=== PATIENT | male | born 1950 | race Caucasian/White ===

== ENCOUNTER 2020-01-27 09:46 | Outpatient (REF) | payer MEDICARE, SELFPAY ==
--- NOTE | 2020-01-27 09:57 | XR_ITS ---
EXAMINATION: XR CHEST CLINICAL INFORMATION: Chest pain COMPARISON: None TECHNIQUE: 2 views of the chest were obtained. FINDINGS: Both lungs are fairly well-expanded and clear of acute process. The heart size and pulmonary vascularity are normal. There is moderate spondylosis dorsal spine. No lytic process seen XR/XR chest 2V IMPRESSION: Unremarkable chest exam
== END 2020-01-27 09:47 | disposition home or self-care (01) ==
LOC: HO.XRAY 09:46
PROVIDERS: PCP Internal Medicine; Visit Provider Internal Medicine Cardiovascular Disease
DX: R07.89 Other chest pain (principal)
CPT/HCPCS: 71046

== ENCOUNTER 2021-05-07 09:55 | Outpatient (REF) | payer MEDICARE, SELFPAY ==
[2021-05-07 11:56] LABS: Anion Gap 12 (12-20); Blood Urea Nitrogen 16 mg/dL (9-16); Calcium 9.3 mg/dL (8.4-10.2); Carbon Dioxide 28 mmol/L (22-29); Chloride 105 mmol/L (96-108); Estimated Glomerular Filt Rate > 60; Glucose Random 102 mg/dL (60-115); Potassium 4.6 mmol/L (3.3-5.1); Sodium 140 mmol/L (135-145)
== END 2021-05-07 09:56 | disposition home or self-care (01) ==
LOC: HO.HMGCLDS 09:55
PROVIDERS: PCP Internal Medicine; Visit Provider Internal Medicine
DX: I25.10 Atherosclerotic heart disease of native coronary artery without angina pectoris (principal); R04.2 Hemoptysis
CPT/HCPCS: 36415; 80048

== ENCOUNTER 2022-06-27 10:10 | Outpatient (REF) | payer MEDICARE, SELFPAY ==
[2022-06-27 11:45] LABS: Amphetamine Screen Urine Not Detected (Not Detect); Barbiturates, Urine Not Detected (Not Detect); Benzodiazepines Screen Urine Not Detected (Not Detect); Cannabinoid Screen Urine Not Detected (Not Detect); Cocaine Screen Urine Not Detected (Not Detect); Fentanyl, urine Not Detected (Not Detect); Opiate Screen Urine Not Detected (Not Detect); Phencyclidine Screen Urine Not Detected (Not Detect)
== END 2022-06-27 10:11 | disposition home or self-care (01) ==
LOC: HO.HMGCLDS 10:10
PROVIDERS: PCP Internal Medicine; Visit Provider Internal Medicine
DX: I48.20 Chronic atrial fibrillation, unspecified (principal); Z79.899 Other long term (current) drug therapy
CPT/HCPCS: 80307

== ENCOUNTER 2023-11-19 15:05 | Outpatient (REF) | payer MEDICARE, SELFPAY ==
[2023-11-19 16:46] LABS: Digoxin 0.4 ng/mL (0.8-2.0)
== END 2023-11-19 15:06 | disposition home or self-care (01) ==
LOC: HO.HMGCLDS 15:05
PROVIDERS: PCP Internal Medicine; Visit Provider Nurse Practitioner
DX: I48.20 Chronic atrial fibrillation, unspecified (principal)
CPT/HCPCS: 36415; 80162

== ENCOUNTER 2024-04-18 11:19 | Outpatient (REF) | payer MEDICARE, SELFPAY ==
--- OUTSIDE RECORDS SUMMARY | 2024-04-18 13:11 | XMS_ITS | Continuity of Care Document ---
Author Organization [facility]. If a dditional information is needed, contact Health Information Management at [phone] Address [address] [place] [address] Phone Care Team Providers Care Communications Professional Name Role Phone Unavailable Unavailable Unavailable Unavailable Unavailable Unavailable Unavailable Unavailable Unavailable Unavailable Unavailable Unavailable Problems Pneumonia Onset:22-Apr-2021 Kayla Maki DO Allergies and Adverse Reactions Codeine(Allergy) Onset: 22-Apr-2021 Reaction:RASH Social History Smoking Status Ex-smoker Recorded: 22-Apr-2021
--- OUTSIDE RECORDS SUMMARY | 2024-04-18 13:11 | XMS_ITS | Clinical Summary ---
Author Organization [facility] ity Address [address] [place] [address] Care Team Providers Care Investigations Manager Name Role Phone Steven Gonzalez MD Primary Care Provider [phone] Immunizations Name Administration Dates Next Due Pfizer SARS-CoV-2 COVID-19, mRNA, LNP-S, preservative free 11/29/2020,05/15/2020,04/24/2020 Surgical History Surgery Date Site/Laterality Comments OTHER SURGICAL HISTORY 11/14/2018 PROCEDURE: CA LAPS ABD PRTM&OMENTUM DX W/WO SPEC BR/WA SPX; COMMENT: w/ or w/o collection of specimen(s) by brushing or washing (separate procedure) OTHER SURGICAL HISTORY 11/14/2018 PROCEDURE: CA ENTERECTOMY RESCJ SMALL INTESTINE W/ENTEROSTOMY COLONOSCOPY 08/02/2018 PROCEDURE: HISTORICAL COLONOSCOPY OTHER SURGICAL HISTORY PROCEDURE: DISKECTOMY LUMBAR SINGLE SP INCISIONAL HERNIA REPAIR PROCEDURE: CA IMPLANT MESH OPN HERNIA RPR/DEBRIDEMENT CLOSURE OTHER SURGICAL HISTORY PROCEDURE: CA PRQ TRLUML CORONARY STENT W/ANGIO ONE ART/BRNCH HERNIA REPAIR Bilateral PROCEDURE: HISTORICAL HERNIA REPAIR/ING CHOLECYSTECTOMY PROCEDURE: HISTORICAL CHOLECYSTECTOMY Medical History Medical History Date Comments BPH (benign prostatic hyperplasia) DX:BPH (benign prostatic hyperplasia) Chronic GERD DX:Chronic GERD History of DVT (deep vein thrombosis) DX:History of DVT (deep vein thrombosis) Obesity (BMI 30-39.9) DX:Obesity (BMI 30-39.9) CIERRA (obstructive sleep apnea) DX :CIERRA (obstructive sleep apnea) Pulmonary embolism (CMS/HCC) DX: Pulmonary embolism (HCC) Deep vein thrombosis (DVT) o f calf muscle vein of right lower extremity, unspecified chronicity (CMS/HCC) DX:Deep vein thrombos is (DVT) of calf muscle vein of right lower extremity, unspecified chronicity (HCC) Dizziness DX:Dizziness Giddiness DX:Giddiness Social History Tobacco Use Types Packs/Day Years Used Date Smoking Tobacco: Former Smokeless Tobacco: Never Alcohol Use Standard Drinks/Week Comments Not Currently 0 (1 standard drink = 0.6 oz pur e alcohol) Sex and Gender Information Value Date Recorded Sex Assigned at Not on file Legal Sex Male 11:47 AM EST Gender Identity Not on file Sexual Orientation Not on file Obstetrics History Last Filed Vital Signs Vital Sign Reading Time Taken Comments Blood Pressure 100/60 12/04/2023 1:06 PM EDT Pulse 64 01/16/2023 2:46 PM EST Temperature - - Respiratory Rate - - Oxygen Saturation - - Inhaled Oxygen Concentration - - Weight 93.9 kg (207 lb) 12/04/2023 1:06 PM EDT Height 188 cm (6' 2 ) 12/04/2023 1:06 PM EDT Body Mass Index 26.58 12/04/2023 1:06 PM EDT Plan of Treatment Health Maintenance Due Date Last Done Comments DTaP,Tdap,and Td Vaccines (1 - Tdap) 06/11/1967 Zoster Vaccines (1 of 2) 1998 Abdominal Aortic Aneurysm (AAA) Screen 01/10/2022 Cholesterol Screening (Lipid Panel) 01/10/2022 Colorectal Cancer Screening: Colonoscopy 01/10/2022 Depression Screening 01/10/2022 Falls Risk Assessment 01/10/2022 Hepatitis C Screening 01/10/2022 Social Influencers of Health Screening 01/10/2022 Hypertension/CHF/CAD Annual BMP Blood Test 01/22/2022 RSV Immunization Patients 60+ Years Old (1 - 1-dose 75+ series) 06/11/2023 COVID-19 Vaccine ( season) 2023 11/29/2020, 05/15/2020, 04/24/2020 Influenza Vaccine (#1) 2023 2, 11/11/2020, 11/05/2019, Additional history exists Pneumococcal Vaccine: 50+ Years Completed 11/11/2020, 12/01/2019, 11/18/2018, Additional history exists HIB Vaccines Aged Out No longer eligi ble based on patient's age to complete this topic HPV Vaccines Aged Out No longer eligi ble based on patient's age to complete this topic Hepatitis A Vaccines Aged Out No long er eligible based on patient's age to complete this topic Hepatitis B Vaccines Aged Out No long er eligible based on patient's age to complete this topic IPV Vaccines Aged Out No longer eligi ble based on patient's age to complete this topic MMR Vaccines Aged Out No longer eligi ble based on patient's age to complete this topic Meningococcal ACWY Vaccine Aged Out N o longer eligible based on patient's age to complete this topic Meningococcal B Vacine Aged Out No lo nger eligible based on patient's age to complete this topic RSV Immunization Patients Under 20 months Aged Out No longer eligible based on patient's age to complete this topic Varicella Vaccines Aged Out No longer eligible based on patient's age to complete this topic Care Teams Investigations Manager Relationship Specialty Start Date End Date Steven Gonzalez MD [address] [place] [address] PCP - General Internal Medicine 03/14/21
[2024-04-18 13:24] LABS: MANUAL DIFF FLAG NO
[2024-04-18 13:29] LABS: Basophils Absolute Auto 0.1 X10*3/uL (0.0-0.2); Basophils Percent Auto 0.7 % (0-2); Eosinophils Absolute Auto 0.6 X10*3/uL (0.0-0.4); Eosinophils Percent Auto 7.4 % (0-4); Hematocrit 40.9 % (42.0-52.0); Hemoglobin 13.6 g/dl (14.0-18.0); Imm Gran Abs Auto 0.02 X10*3/uL (0.00-0.03); Imm Gran Pct Auto 0.3 % (0.0-0.4); Lymphocytes Absolute Auto 1.8 X10*3/uL (1.2-4.9); Lymphocytes Percent Auto 24.2 % (20-40); Mean Corpuscular HGB Conc 33.3 g/dl (31.0-36.0); Mean Corpuscular Hemoglobin 29.5 pg (27.0-33.0); Mean Corpuscular Volume 88.7 fL (80.0-98.0); Monocytes Absolute Auto 0.7 X10*3/uL (0.1-1.2); Neutrophils Absolute Auto 4.4 x10*3/uL (2.0-8.3); Neutrophils Percent Auto 58.4 % (45-73); Platelet Count 151 X10*3/uL (160-400); Red Blood Count 4.61 X10*6/uL (4.60-5.80); Red Cell Distribution Width 14.8 % (11.0-16.0); White Blood Count 7.6 X10*3/uL (4.8-10.8)
[2024-04-18 13:45] LABS: Estimated Average Glucose 120 mg/dL; Hemoglobin A1c % 5.8 % (<6.0)
[2024-04-18 13:52] LABS: Alanine Aminotransferase 11 U/L (0-40); Albumin Level 3.5 g/dL (3.5-5.0); Alkaline Phosphatase 64 U/L (39-117); Anion Gap 9 (12-20); Aspartate Amino Transferase 27 U/L (5-37); Bilirubin Total 1.4 mg/dL (0.0-1.0); Blood Urea Nitrogen 13 mg/dL (9-16); Calcium 8.6 mg/dL (8.4-10.2); Carbon Dioxide 27 mmol/L (22-29); Chloride 107 mmol/L (96-108); Estimated Glomerular Filt Rate > 60; Glucose Random 105 mg/dL (60-115); Potassium 4.3 mmol/L (3.3-5.1); Sodium 139 mmol/L (135-145); Total Protein 6.1 g/dL (6.5-8.0)
== END 2024-04-18 11:20 | disposition home or self-care (01) ==
LOC: HO.HMGCLDS 11:19
PROVIDERS: PCP Internal Medicine; Visit Provider Internal Medicine
DX: I50.9 Heart failure, unspecified (principal); E78.00 Pure hypercholesterolemia, unspecified; R73.01 Impaired fasting glucose
CPT/HCPCS: 36415; 80053; 83036; 84439; 84443; 85025

== ENCOUNTER 2024-09-12 10:37 | Outpatient (REF) | payer MEDICARE, SELFPAY ==
--- OUTSIDE RECORDS SUMMARY | 2024-09-12 10:45 | XMS_ITS | Continuity of Care Document ---
Author Organization [facility]. If a dditional information is needed, contact Health Information Management at [phone] [address] [place] [address] Phone Care Team Providers Care Research Assistant Name Role Phone Unavailable Unavailable Unavailable Unavailable Unavailable Unavailable Unavailable Unavailable Unavailable Unavailable Unavailable Unavailable Problems Pneumonia Onset:22-Apr-2021 Kayla Maki DO Allergies and Adverse Reactions Codeine(Allergy) Onset: 22-Apr-2021 Reaction:RASH Social History Smoking Status Ex-smoker Recorded: 22-Apr-2021
--- OUTSIDE RECORDS SUMMARY | 2024-09-12 10:46 | XMS_ITS | Clinical Summary ---
Author Organization [facility] Address [address] [place] [address] Phone Care Team Providers Care Meteorological Engineer Name Role Phone Steven Gonzalez MD Primary Care Provider [phone] Allergies No known active allergies Medications Xarelto 20 mg tablet Take 1 tablet (20 mg total) by mouth 1 (one) time each day with dinner. Active aspirin 81 mg EC tablet Take 1 tablet (81 mg total) by mouth daily. Active nitroglycerin (NITROSTAT) 0.[address] 1 tablet (0.4 mg total) under the tongue every 5 (five) minutes if needed for chest pain. 100 tablet 08/22/19 25 Active midodrine (PROAMATINE) 5 mg tablet TAKE 1 TABLET BY MOUTH TWICE A DAY. TAKE IN ADDITION TO THE 2.5 MG TABLETS FOR A TOTAL DOSE OF 7.5 MG TWICE A DAY. 180 tablet 08/22/19 25 Active midodrine (PROAMATINE) 2.5 mg tablet Take 1 tablet (2.5 mg total) by mouth 2 (two) times a day. 180 tablet 08/22/19 25 Active metoprolol succinate (TOPROL-XL) 25 mg 24 hr tablet Take 1 tablet (25 mg total) by mouth 1 (one) time each day. 90 tablet 08/22/19 25 Active atorvastatin (LIPITOR) 80 mg tablet Take 1 tablet (80 mg total) by mouth 1 (one) time each day. 90 tablet 08/22/19 25 Active digoxin (LANOXIN) 250 mcg (0.25 mg) tablet 1 tablet 3 times a week on Sunday, Sunday and Sunday 36 tablet 1 08/22/19 Active midodrine (PROAMATINE) 2.5 mg tablet TAKE 1 TABLET BY MOUTH 2 TIMES DAILY. TAKE IN ADDITION TO 5 MG TABLETS FOR TOTAL 7.5 MG TWICE A DAY 180 tablet 1 05/09/19 25 025 Discontinued(Re order) metoprolol succinate (TOPROL-XL) 25 mg 24 hr tablet TAKE 1 TABLET BY MOUTH EVERY DAY 90 tablet 2 06/24/19 025 Discontinued(Re order) midodrine (PROAMATINE) 5 mg tablet TAKE 1 TABLET BY MOUTH TWICE A DAY. TAKE IN ADDITION TO THE 2.5 MG TABLETS FOR A TOTAL DOSE OF 7.5 MG TWICE A DAY. 180 tablet 1 08/02/19 025 Discontinued(Re order) nitroglycerin (NITROSTAT) 0.[address] 1 tablet (0.4 mg total) under the tongue every 5 (five) minutes if needed for chest pain. 025 Discontinued(Re order) atorvastatin (LIPITOR) 80 mg tablet Take 1 tablet (80 mg total) by mouth 1 (one) time each day. 025 Discontinued(Re order) digoxin (LANOXIN) 250 mcg (0.25 mg) tablet Take 1 tablet (250 mcg total) by mouth. 1 tablet 3 times a week on Sunday, Sunday and Sunday 025 Discontinued(Re order) digoxin (LANOXIN) 250 mcg (0.25 mg) tablet Take 1 tablet (250 mcg total) by mouth 1 (one) time each day. 1 tablet 3 times a week on Sunday, Sunday and Sunday 90 tablet 1 08/22/19 025 Discontinued Hospital, Clinic, or Other Facility Administered Medication Ordered Dose Route Frequency Start Date End Date Status TC-99M tetrofosmin P radio-isotope injection 10.2 millicurie 10.2 millicurie IV Once in imaging 09/04/2024 09/04/2024 Ende d regadenoson (LEXISCAN) injection 0.4 mg 0.4 mg IV Once in imaging 09/04/2024 09/04/2024 End ed TC-99M tetrofosmin P radio-isotope injection 32 millicurie 32 millicurie IV Once in imaging 09/04/2024 09/04/2024 Ended Active Problems Problem Noted Date Diagnosed Date Atrial fibrillation, chronic ([facility] V24, [facility] V28) 08/22/2024 Assessment & Plan (08/22/2024 8:33 AM EDT): Patient continues on anticoagulation with Xarelto. He has history of paroxysmal atrial fibrillation. We will update a Holter monitor to assess for any rate control issues. HLD (hyperlipidemia) 05/04/2021 Assessment & Plan (08/22/2024 8:33 AM EDT): Goal LDL cholesterol is less than 70. He continues on atorvastatin 80 mg once a day. Will update labs today. 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 He continues on Xarelto for anticoagulation. His creatinine clearance is 115 mL/min. He is appropriately dosed on Xarelto 20 mg once a day. 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 He continues on Xarelto for anticoagulation. His creatinine clearance is 98 mL/min. He is appropriately dosed on Xarelto 20 mg once a day. Hypertension 01/21/2018 Assessment & Plan (08/22/2024 8:33 AM EDT): Patient is blood pressure today is 110/72. He does have history of static hypotension and he is complaining of some lightheadedness with activities. Has been taking midodrine only 5 mg twice a day. At 1 point we did increase this to 7.5 mg twice a day however the patient was unsure of what he was was to be taking. We discussed this at length and patient is now aware that he should now take 7.5 mg twice a day first dose in the morning and the second dose early afternoon. Coronary artery disease 01/08/2018 Overview (08/22/2024): Assessment & Plan (08/22/2024 8:33 AM EDT): Patient is history of coronary artery disease with history of LAD stenting in 2007 and RCA stenting in 2009. He denies any exertional anginal symptoms. However he is complaining of palpitations and chest discomfort with activity. He reports that he does sometimes take sublingual nitroglycerin however has nitroglycerin is . Generally the discomfort resolves quickly with rest. I have renewed his sublingual nitroglycerin and I reviewed indications for appropriate use. I will also arrange for cardiac testing including a registered nurse cardiac telemetry, echocardiogram and nuclear stress test patient will also have labs done today. Patient encouraged to follow-up with primary care provider to discuss his depression issues or at least search for a new primary since he states that his current primary will be retiring. I will of course notify him of results when available and we will plan to see him back in the coming weeks to reevaluate his symptoms. Resolved Problems Problem Noted Date Diagnosed Date Resolved Date Coronary artery disease invo lving nenana coronary artery of nenana heart 08/22/2024 08/23/19 25 Longstanding persistent atri al fibrillation (CMS/HCC V24, CMS/HCC V28) 07/11/2022 08/22/2024 Atrial fibrillation (CMS/HCC V24, CMS/HCC V28) 05/05/2021 08/22/2024 Overview (08/22/2024): Last Assessment & Plan: Patient continues on digoxin and metoprolol for rate control of his atrial fibrillation. He continues on Xarelto for anticoagulation. I will update a digoxin level. Encounters Date Type Department Care Team Description 09/04/2024 8:00 AM EDT Ancillary Procedure [facility] Cardiology [facility] [address] [place] [phone] Atrial fibrillation, chronic (CMS/HCC V24, CMS/HCC V28); Coronary artery disease involving nenana coronary artery of nenana heart, unspecified whether angina present 09/01/2024 8:30 AM EDT Ancillary Procedure [facility] Cardiology [facility] [address] [place] [phone] Atrial fibrillation, chronic (CMS/HCC V24, CMS/HCC V28); Coronary artery disease involving nenana coronary artery of nenana heart, unspecified whether angina present 08/26/2024 Telephone [facility] [address] [place] [address] Herminia Miller NP 08/22/2024 Telephone [facility] [address] [place] [address] Herminia Miller NP Results 08/21/2024 8:10 AM EDT Office Visit [facility] [address] [facility] [address] [place] [address] Herminia Miller NP Atrial fibrillation, chronic (CMS/HCC V24, CMS/HCC V28) (Primary Dx); Coronary artery disease involving nenana coronary artery of nenana heart without angina pectoris; Mixed hyperlipidemia; Primary hypertension; Pulmonary embolism, unspecified chronicity, unspecified pulmonary embolism type, unspecified whether acute cor pulmonale present (CMS/HCC V24, CMS/HCC V28); Coronary artery disease involving nenana coronary artery of nenana heart, unspecified whether angina present 08/04/2024 Telephone [facility] [address] [place] [address] Herminia Miller NP Appointment 08/01/2024 Telephone [facility] [address] [place] [address] Herminia Miller NP Medication Problem from Last 3 Months Immunizations Name Administration Dates Next Due [facility] SARS-CoV-2 COVID-19, mRNA, LNP-S, preservative free 11/29/2020,05/15/2020,04/24/2020 Surgical History Surgery Date Site/Laterality Comments OTHER SURGICAL HISTORY 11/14/2018 PROCEDURE: VT LAPS ABD PRTM&OMENTUM DX W/WO SPEC BR/WA SPX; COMMENT: w/ or w/o collection of specimen(s) by brushing or washing (separate procedure) OTHER SURGICAL HISTORY 11/14/2018 PROCEDURE: VT ENTERECTOMY RESCJ SMALL INTESTINE W/ENTEROSTOMY COLONOSCOPY 08/02/2018 PROCEDURE: HISTORICAL COLONOSCOPY OTHER SURGICAL HISTORY PROCEDURE: DISKECTOMY LUMBAR SINGLE SP INCISIONAL HERNIA REPAIR PROCEDURE: VT IMPLANT MESH OPN HERNIA RPR/DEBRIDEMENT CLOSURE OTHER SURGICAL HISTORY PROCEDURE: VT PRQ TRLUML CORONARY STENT W/ANGIO ONE ART/BRNCH [...] DX :CIERRA (obstructive sleep apnea) Pulmonary embolism (CMS/HCC V24, CMS/HCC V28) DX:Pulmonary embolism (HCC) Deep vein thrombosis (DVT) o f calf muscle vein of right lower extremity, unspecified chronicity (CMS/HCC V24, CMS/HCC V28) DX:Deep vein thrombosis (DVT ) of calf muscle vein of right lower extremity, unspecified chronicity (HCC) Dizziness DX:Dizziness Giddiness DX:Giddiness Social History Tobacco Use Types Packs/Day Years Used Date Smoking Tobacco: Former Cigarettes Smokeless Tobacco: Never Tobacco Cessation:Counseling Given: Not Answered Alcohol Use Standard Drinks/Week Comments Not Currently 0 (1 standard drink = 0.6 oz pur e alcohol) Sex and Gender Information Value Date Recorded Sex Assigned at Not on file Legal Sex Male 11:47 AM EST Gender Identity Not on file Sexual Orientation Not on file Obstetrics History Last Filed Vital Signs Vital Sign Reading Time Taken Comments Blood Pressure 110/72 08/21/2024 8:04 AM EDT Pulse 68 08/21/2024 8:04 AM EDT Temperature - - Respiratory Rate - - Oxygen Saturation 98% 08/21/2024 8:04 AM EDT Inhaled Oxygen Concentration - - Weight 91.2 kg (201 lb) 09/04/2024 8:14 AM EDT Height 188 cm (6' 2 ) 09/04/2024 8:14 AM EDT Body Mass Index 25.81 09/04/2024 8:14 AM EDT Plan of Treatment Upcoming Encounters Date Type Department Care Team (Late st Contact Info) Description 09/25/2024 7:40 AM EDT Office Visit [facility] [address] [place] [phone] Herminia Miller, NADINE [address] [place] [address] [address] [place] [address] 12/02/2024 8:00 AM EDT Ancillary Procedure [facility] Cardiology [facility] [address] [place] [phone] Health Maintenance Due Date Last Done Comments Zoster Vaccines (1 of 2) 1998 Falls Risk Assessment 01/10/2022 Social Influencers of Health Screening 01/10/2022 Medicare Annual Wellness Visit 07/12/2023 07/11/2022 Depression Screening 02/13/2024 COVID-19 Vaccine ( season) 2024 10/27/2023, 02/07/2023, 11/16/2021, Additional history exists Influenza Vaccine (#1) 2024 , 02/06/2023, 10/31/2021, Additional history exists Hypertension/CHF/CAD Annual BMP Blood Test 08/21/2025 08/21/2024, 12/28/2023, 06/14/2023, Additional history exists Cholesterol Screening (Lipid Panel) 08/21/2029 08/21/2024 DTaP,Tdap,and Td Vaccines (2 - Td or Tdap) 07/22/2031 07/21/2021 Hepatitis C Screening Completed 12/09/2018 Pneumococcal Vaccine: 50+ Years Completed 11/11/2020, 12/01/2019, 11/13/2018, Additional history exists RSV Immunization Adult Patients Completed 12/29/2023 HIB Vaccines Aged Out No longer eligi [...] age to complete this topic Meningococcal B Vaccine Aged Out No l onger eligible based on patient's age to complete this topic RSV Immunization Patients Under 20 months Aged Out No longer eligible based on patient's age to complete this topic Varicella Vaccines Aged Out No longer eligible based on patient's age to complete this topic Procedures Procedure Name Priority Date/Time Associated Diagnosis Comments NM LEXISCAN STRESS TEST W/ MYOCARDIAL PERFUSION Routine 09/04/2024 10:15 AM EDT Atrial fibrillation, chronic (CMS/HCC V24, CMS/HCC V28) Coronary artery disease involving nenana coronary artery of nenana heart, unspecified whether angina present CARDIAC HOLTER MONITOR (REPORT GENERATED IN HOUSE) Routine 09/01/2024 8:17 AM EDT Atrial fibrillation, chronic (CMS/HCC V24, CMS/HCC V28) Coronary artery disease involving nenana coronary artery of nenana heart, unspecified whether angina present ..THYROXINE FREE Routine 08/21/2024 9:08 AM EDT CBC WITH AUTO DIFFERENTIAL Routine 08/21/2024 9:08 AM EDT Atrial fibrillation, chronic (CMS/HCC V24, CMS/HCC V28) Coronary artery disease involving nenana coronary artery of nenana heart, unspecified whether angina present LIPID PANEL Routine 08/21/2024 9:08 AM EDT Atrial fibrillation, chronic (CMS/HCC V24, CMS/HCC V28) Coronary artery disease involving nenana coronary artery of nenana heart, unspecified whether angina present THYROID STIMULATING HORMONE WITH REFLEX FREE T4 Routine 08/21/2024 9:08 AM EDT Atrial fibrillation, chronic (CMS/HCC V24, CMS/HCC V28) Coronary artery disease involving nenana coronary artery of nenana heart, unspecified whether angina present CBC AND DIFFERENTIAL Routine 08/21/2024 9:08 AM EDT Atrial fibrillation, chronic (CMS/HCC V24, CMS/HCC V28) Coronary artery disease involving nenana coronary artery of nenana heart, unspecified whether angina present MAGNESIUM Routine 08/21/2024 9:08 AM EDT Atrial fibrillation, chronic (CMS/HCC V24, CMS/HCC V28) Coronary artery disease involving nenana coronary artery of nenana heart, unspecified whether angina present DIGOXIN LEVEL Routine 08/21/2024 9:08 AM EDT Atrial fibrillation, chronic (CMS/HCC V24, CMS/HCC V28) Coronary artery disease involving nenana coronary artery of nenana heart, unspecified whether angina present COMPREHENSIVE METABOLIC PANEL Routine 08/21/2024 9:08 AM EDT Atrial fibrillation, chronic (CMS/HCC V24, CMS/HCC V28) Coronary artery disease involving nenana coronary artery of nenana heart, unspecified whether angina present ECG 12-LEAD Routine 08/21/2024 8:18 AM EDT Atrial fibrillation, chronic (CMS/HCC V24, CMS/HCC V28) Coronary artery disease involving nenana coronary artery of nenana heart, unspecified whether angina present from Last 3 Months Results * NM LEXISCAN STRESS TEST W/ MYOCARDIAL PERFUSION (09/04/2024 10:15 AM EDT) Exercise/inject ion duration (min) 0 CV PACS STRESS Exercise/inject ion duration (sec) 43 CV PACS STRESS Peak SBP 106 mmHg CV PACS STRESS Peak DBP 69 mmHg CV PACS STRESS Peak HR 83 bpm CV PACS STRESS Baseline HR 70 bpm CV PACS STRESS Baseline SBP 107 mmHg CV PACS STRESS Baseline DBP 70 mmHg CV PACS STRESS Estimated workload 1.0 METS CV PACS STRESS Percent HR 58 % CV PACS STRESS Rate Pressure Product 8,798.0 mmHg*bpm CV PACS STRESS Target HR 122 bpm CV PACS STRESS Max HR Percent 58 % CV PA CS STRESS O2 sat rest 98 % CV PACS STRESS ST Depression (mm) 0 mm CV PACS STRESS TID 1.15 CV PACS STRESS Nuc Stress EF 68 % CV PAC S STRESS Nuc Rest EF 64 % CV PACS STRESS BSA 2.18 m2 CV PACS STRESS Anatomical Region Laterality Modality Nuclear Medicine 09/04/2024 8:54 AM EDT 09/04/2024 9:20 AM EDT Narrative 09/05/2024 5:34 PM EDT Raw Images and CineLoop Images: Impression: 1. Abnormal Regadenosone stress test with nuclear imaging due to dilated LV. 2. The patient had no chest pain during the test. 3. EKG at baseline was atrial fibrillation, nondiagnostic for ischemic changes. 4. LV Cavity size is dilated. 5. No transient ischemic dialatation (TID 1.15) 6, CT scan showed significant calcification of the coronary arteries. 7. Raw perfusion imgaes revelaed scattered area of hypoperfusion both in rest and stress. But when attenuation correction is applied, there is scattered hypoperfusion improves predominantly suggesting extracardiac soft tissue attenuation defect. Hence no ischemia or infarction. 8. Gated SPECT imaging was performed which demonstrated normal LV wall motion and thickening with a calculated LVEF of 68% at stress and 64% at rest. Stress Findings A pharmacological stress test was performed using regadenoson, 0.4 mg IV over 10-15 seconds, followed by radiopharmacological injection 10 seconds post infusion. Total stress time was 0 min and 43 sec. The patient reached the end of the protocol. Blood pressure demonstrated a normal response. Heart rate demonstrated a normal response. The patient reported no symptoms during the stress test. ECG 74 yo male with a history of CAD, Afib, HLD, HTN and DVT/PE referred for CP. The ECG shows atrial fibrillation. Arrhythmias during stress: occasional premature ventricular contractions (PVCs) . There is no ST segment changes during stress. Arrhythmias during recovery: rare premature ventricular contractions (PVCs). Nuclear Study Quality Study technique: MPI, SPECT, multi, rest and stress, 1 day and gated. Overall image quality is good. CT attenuation correction was utilized. No radiopharmaceutical dose was extravasated. Stress Function Comments Stress ejection fraction is 68%. Rest Function Comments Resting ejection fraction was 64%. Herminia Miller NP CV STRESS PROCEDURES Final R esult * CARDIAC HOLTER MONITOR (REPORT GENERATED IN HOUSE) (09/01/2024 8:17 AM EDT) Anatomical Region Laterality Modality Cardiac Diagnost ic Narrative 09/04/2024 5:18 PM EDT [facility]PARTMENT [address] [place] [address], [address] [address] TEL: FAX: Type of test: 24 hour Holter Monitor Date of test: 09/01/24 Ordering provider: Herminia Miller NP Reason for Test: Atrial Fibrillation Impression: 1: Atrial Fibrillation noted throughout recording period. 2: Ventricular rate range was 33- 104 bpm with an average of 66 bpm. 3: Occasional PVCs (2.3 %), rare couplets and ventricular bi/trigeminy, one triplet, and one 4-beat ventricular run. 4: No pauses noted. Longest R-R 2.2 sec. 5: Diary returned with no entries. Herminia Miller NP CV CARDIAC SERVICES PROCEDUR ES Final Result * Thyroxine free (08/21/2024 9:08 AM EDT) T4 (Thyroxine) Free (Direct) 1.04 0.82 - 1.77 ng/dL [facility] 1 08/21/2024 9:08 AM EDT 08/21/2024 Narrative [facility] 1 - 08/22/2024 4:06 AM EDT Performed at: - [facility] [id number] Supervisor Properties: Conchis Eng MD, Phone: [phone] us Herminia Miller STRAP SETTER LAB BLOOD ORDERABLES Final R esult [facility] * (ABNORMAL) Thyroid stimulating hormone with reflex free T4 (08/21/2024 9:08 AM EDT) Thyroid Stimulating Hormone (TSH) 7.290(H) 0.450 - 4.500 uIU/mL [facility] 1 Blood Venous blood specimen / Unknown 08/21/2024 9:08 AM EDT 08/21/2024 Narrative [facility] 1 - 08/22/2024 4:06 AM EDT Performed at: 01 - [facility] [id number] Supervisor Properties: Conchis Eng MD, Phone: [phone] us Herminia Paul STRAP SETTER LAB BLOOD ORDERABLES Final R esult [facility] 1 * CBC auto differential (08/21/2024 9:08 AM EDT) Pathologist [facility] [place] WBC 7.4 3.4 - 10.8 x10E3/uL [facility] 1 RBC 4.86 4.14 - 5.80 x10E6/uL [facility] 1 Hemoglobin 14.2 13.0 - 17.7 g/dL [facility] 1 Hematocrit 44.7 37.5 - 51.0 % [facility] 1 MCV 92 79 - 97 fL [facility] 1 MCH 29.2 26.6 - 33.0 pg [facility] 1 MCHC 31.8 31.5 - 35.7 g/dL [facility] 1 RDW 13.2 11.6 - 15.4 % [facility] 1 Platelets 189 150 - 450 x10E3/uL [facility] 1 Neutrophils 66 Not Estab. % [facility] 1 Lymphocytes 17 Not Estab. % [facility] 1 Monocytes 10 Not Estab. % [facility] 1 Eosinophils 6 Not Estab. % [facility] 1 Basophils 1 Not Estab. % [facility] 1 Neutrophils Absolute 4.8 1.4 - 7.0 x10E3/uL [facility] 1 Lymphocytes Absolute 1.3 0.7 - 3.1 x10E3/uL [facility] 1 Monocytes Absolute 0.8 0.1 - 0.9 x10E3/uL [facility] 1 Eosinophils Absolute 0.4 0.0 - 0.4 x10E3/uL [facility] 1 Basophils Absolute 0.1 0.0 - 0.2 x10E3/uL [facility] 1 Immature Granulocytes Relative 0 Not Estab. % [facility] 1 Immature Grans (Abs) 0.0 0.0 - 0.1 x10E3/uL [facility] 1 Blood Venous blood specimen / Unknown 08/21/2024 9:08 AM EDT 08/21/2024 Narrative [facility] 1 - 08/21/2024 10:06 PM EDT Performed at: [address] [id number] Supervisor Properties: Conchis Eng MD, Phone: [phone] us Herminia Bartolucci STRAP SETTER LAB BLOOD ORDERABLES Final R esult Performing Organization Address City/[facility]/ZIP Co de Phone Number [facility] 1 * Magnesium (08/21/2024 9:08 AM EDT) Magnesium 2.1 1.6 - 2.3 mg/dL [facility] 1 Blood Venous blood specimen / Unknown 08/21/2024 9:08 AM EDT 08/21/2024 Narrative [facility] 1 - 08/22/2024 4:06 AM EDT Performed at: [address] [id number] Supervisor Properties: Conchis Eng MD, Phone: [phone] us Herminia Bartolucci STRAP SETTER LAB BLOOD ORDERABLES Final R esult Performing Organization Address City/[facility] Co de Phone Number [facility] * Digoxin level (08/21/2024 9:08 AM EDT) Digoxin 0.6 0.5 - 0.9 ng/mL [facility] Comment: Concentrations above 2.0 ng/mL are generally considered toxic. Some overlap of toxic and non-toxic values have been reported. Detection Limit = 0.4 ng/mL Therapeutic range is derived from 2013 ACCF/AHA Guidelines for the Management of Heart Failure. Blood Venous blood specimen / Unknown 08/21/2024 9:08 AM EDT 08/21/2024 Narrative [facility] 1 - 08/22/2024 8:07 AM EDT Performed at: [facility] [id number] Supervisor Properties: Conchis Eng MD, Phone: [phone] us Herminia Bartolucci STRAP SETTER LAB BLOOD ORDERABLES Final R esult Performing Organization Address [facility] Co de Phone Number [facility] * Lipid panel (08/21/2024 9:08 AM EDT) Pathologist [facility] [place] Cholesterol Total 106 100 - 199 mg/dL [facility] 1 Triglycerides 72 0 - 149 mg/dL [facility] 1 HDL Cholesterol 44 >39 mg/dL [facility] 1 VLDL Cholesterol Calculated 15 5 - 40 mg/dL [facility] 1 LDL Chol Calc ([facility]) 47 0 - 99 mg/dL [facility] 1 Blood Venous blood specimen / Unknown 08/21/2024 9:08 AM EDT 08/21/2024 Narrative [facility] 1 - 08/22/2024 4:06 AM EDT Performed at: 01 - [facility] [id number] Supervisor Properties: Conchis Eng MD, Phone: [phone] Herminia Miller LAB BLOOD ORDERABLES Final R [facility] Performing Organization Address [facility] Co de Phone Number [facility] * (ABNORMAL) Comprehensive metabolic panel (08/21/2024 9:08 AM EDT) Pathologist [facility] [place] Glucose 96 70 - 99 mg/dL [facility] 1 Blood Urea Nitrogen (BUN) 11 8 - 27 mg/dL [facility] 1 Creatinine 0.85 0.76 - 1.27 mg/dL [facility] 1 eGFR 90 >59 mL/min/1. 73 [facility] 1 BUN/Creatinine Ratio 13 10 - 24 [facility] 1 Sodium 141 134 - 144 mmol/L [facility] 1 Potassium 4.5 3.5 - 5.2 mmol/L [facility] 1 Chloride 103 96 - 106 mmol/L [facility] 1 Carbon Dioxide 21 20 - 29 mmol/L [facility] 1 Calcium 9.4 8.6 - 10.2 mg/dL [facility] 1 Protein Total 6.1 6.0 - 8.5 g/dL [facility] 1 Albumin 3.9 3.8 - 4.8 g/dL [facility] 1 Globulin Total 2.2 1.5 - 4.5 g/dL [facility] 1 Bilirubin Total 1.5(H) 0.0 - 1.2 mg/dL [facility] 1 Alkaline Phosphatase 93 44 - 121 IU/L [facility] 1 Aspartate aminotransferase (AST) 18 0 - 40 IU/L [facility] 1 Alanine Aminotransferase (ALT) 10 0 - 44 IU/L [facility] 1 Blood Venous blood specimen / Unknown 08/21/2024 9:08 AM EDT 08/21/2024 Narrative [facility] 1 - 08/22/2024 4:06 AM EDT Performed at: 01 - [facility] [id number] Supervisor Properties: Conchis Eng MD, Phone: [phone] us Herminia Miller NP LAB BLOOD ORDERABLES Final R esult [facility] 1 * ECG 12 lead (08/21/2024 8:18 AM EDT) Ventricular Rate ECG 79 BPM GEMUSE Atrial Rate 73 BPM GEMUSE P-R Interval 168 ms GEMUSE QRS Duration 94 ms GEMUSE Q-T Interval 378 ms GEMUSE QTc 433 ms GEMUSE P Wave [place] -10 degrees GEMUSE R [place] 45 degrees GEMUSE T [place] 159 degrees GEMUSE ECG Interpretation Atrial fibrillation with premature ventricular or aberrantly conducted complexes Nonspecific ST abnormality Abnormal ECG No previous ECGs available Confirmed by MELISSA PANCHAL ([id number]) on 08/21/2024 2:38:31 PM GEMUSE 08/21/2024 8:18 AM EDT 08/21/2024 2:38 PM EDT us Herminia Miller STRAP SETTER ECG ORDERABLES Final Result GEMUSE from Last 3 Months Insurance MEDICARE Care Teams Meteorological Engineer Relationship Specialty Start Date End Date Steven Gonzalez MD [address] [place] [address] PCP - General Internal Medicine 03/14/21
--- OUTSIDE RECORDS SUMMARY | 2024-09-12 10:46 | XMS_ITS | Encounter Summary ---
Author Organization Located Within [facility] Address [address] [facility] [address] [place] [address] Phone Care Team Providers Care Public Policy Analyst Name Role Phone Steven Gonzalez MD Primary Care Provider Missael Chester MD Unavailable [phone] Steven Gonzalze MD Unavailable [phone] Anna Walsh MD Unavailable Jak Gasca MD Unavailable Matthew Rashid MD Unavailable [phone] Nicole Mansfield RN Unavailable Herminia Miller NP Unavailable Encounter Details Date Type Department Care Team (Late st Contact Info) Description 08/22/2024 Orders Only [facility] [place] Internal Medicine [address] [place] [address] Provider, MD Lanette [address] [place] [address] Social History Tobacco Use Types Packs/Day Years Used Date Smoking Tobacco: Former Cigarettes 2 30 1 962 - 1992 Smokeless Tobacco: Never Alcohol Use Standard Drinks/Week Comments No 0 (1 standard drink = 0.6 oz pur e alcohol) quit 1989 aa Education Answer Date Recorded Are you interested in more education? Not on lula e 06/09/2022 Are you concerned about learning? Not on file 06/09/2022 No 06/09/2022 No 06/09/2022 Digital Access Answer Date Recorded No 07/10/2022 No 07/10/2022 Reliable internet access at home? Not on file 07/10/2022 Device with a working camera? Not on file Intimate Partner Violence Answer Date R ecorded Denied Basic Needs Not on file 12/28/2023 In the past 12 months have y ou been in a relationship with a person who hurts, threatens, or tries to control you? No 12/28/2023 Worried food would run out Not on file 12/27 In the past 12 months have y ou been in a relationship with a person who hurts, threatens, or tries to control you? No 12/28/2023 Sex and Gender Information Value Date Recorded Sex Assigned at Not on file Legal Sex Male 10:38 AM EST Gender Identity Not on file Sexual Orientation Not on file documented as of this encounter Plan of Treatment Upcoming Encounters Date Type Department Care Team (Late st Contact Info) Description 12/29/2024 9:00 AM EST Office Visit [facility] Internal Medicine [address] [place] [address] Steven Gonzalez MD [address] [place] [address] 12/31/2024 8:00 AM EST Office Visit [facility] Internal Medicine [address] [place] [address] Steven Gonzalez MD [address] [place] [address] documented as of this encounter Procedures Procedure Name Priority Date/Time Associated Diagnosis Comments OUTSIDE LAB Routine 08/21/2024 1:51 PM EDT documented in this encounter Results * Outside Lab (08/21/2024 1:51 PM EDT) us Historical Provider LAB BLOOD ORDERABLES Elva l Result documented in this encounter Visit Diagnoses Not on filedocumented in this encounter Additional Health Concerns Assessment Noted Time PHQ-2 Depression Total Score: 1 12/28/19 24 8:38 AM EST documented as of this encounter Care Teams Public Policy Analyst Relationship Specialty Start Date End Date Steven Gonzalez MD [address] [place] [address] [email or web address] PCP - General Internal Medicine 08/17/17 Missael Chester MD [address] [place] [address], [address] [place], [place] [id number] [email or web address] Attributed Provider Urology 02/03/19 Steven Gonzalez MD [address] [place] [address] Insurance Assigned Provider 05/19/23 Anna Walsh MD [address] [place] [address] Cardiology 12/01/19 08/27/24 Jak Gasca MD [address] [place] [address], [address] [place], [place] [phone] [email or web address] Urology 12/16/19 Matthew Rashid MD [address] [facility] [address] [place] [phone] [email or web address] Urology 12/16/19 Nicole Mansfield, RN [address] [place] [address] [email or web address] Courier Driver 10/26/21 Herminia Miller, CAVITY PUMP OPERATOR [address] [place] [address] [place] [address] Nurse Practitioner Cardiology 02/27/23 documented as of this encounter Additional Source Comments The information contained in this document represents components of the legal health record. It is not the complete legal health record.Located Within [facility]
[2024-09-12 10:49] LABS: MANUAL DIFF FLAG NO
[2024-09-12 11:18] LABS: Hematocrit 43.5 % (42.0-52.0); Hemoglobin 14.5 g/dl (14.0-18.0); Imm Gran Abs Auto 0.02 X10*3/uL (0.00-0.03); Imm Gran Pct Auto 0.2 % (0.0-0.4); Lymphocytes Absolute Auto 1.6 X10*3/uL (1.2-4.9); Mean Corpuscular HGB Conc 33.3 g/dl (31.0-36.0); Mean Corpuscular Hemoglobin 29.1 pg (27.0-33.0); Mean Corpuscular Volume 87.2 fL (80.0-98.0); NRBC Abs Auto 0.000 X10*3/uL (0.0-0.012); NRBC Pct Auto 0.0 /100WBC (0.0-0.2); Platelet Count 198 X10*3/uL (160-400); Red Blood Count 4.99 X10*6/uL (4.60-5.80); White Blood Count 8.4 X10*3/uL (4.8-10.8)
[2024-09-12 12:01] LABS: Alanine Aminotransferase 15 U/L (0-40); Albumin Level 3.9 g/dL (3.5-5.0); Alkaline Phosphatase 87 U/L (39-117); Aspartate Amino Transferase 29 U/L (5-37); Total Protein 6.5 g/dL (6.5-8.0)
== END 2024-09-12 10:38 | disposition home or self-care (01) ==
LOC: HO.LAB 10:37
PROVIDERS: PCP Internal Medicine; Visit Provider Internal Medicine
DX: I25.10 Atherosclerotic heart disease of native coronary artery without angina pectoris (principal); I50.9 Heart failure, unspecified; R42 Dizziness and giddiness
CPT/HCPCS: 36415; 80076; 85025

== ENCOUNTER 2024-12-31 13:04 | Outpatient (REF) | payer MEDICARE, SELFPAY ==
--- OUTSIDE RECORDS SUMMARY | 2024-12-29 09:00 | XMS_ITS | Encounter Summary ---
Author Organization [facility] Address [address] [facility] [address] [place] [address] Phone Care Team Providers Care Direct Mail Manager Name Role Phone Steven Gonzalez MD Primary Care Provider [phone] Missael Chester MD Unavailable [phone] Steven Gonzalez MD Unavailable [phone] Jak Gasca MD Unavailable [phone] Matthew Rashid MD Unavailable [phone] Herminia Miller NP Unavailable [phone] Encounter Details Date Type Department Care Team (Late st Contact Info) Description 12/29/2024 9:00 AM EST Office Visit [facility] Internal Medicine [address] [place], [place] [phone] Steven Gonzalez MD [address] [place], [place] [phone] [email or web address] No-show for appointment (Primary Dx) Social History Tobacco Use Types Packs/Day Years [...] on file documented as of this encounter Progress Notes * Steven Gonzalez MD - 12/29/2024 9:00 AM EST No show documented in this encounter Plan of Treatment Upcoming Encounters Date Type Department Care Team (Late st Contact Info) Description 02/20/2025 2:30 PM EST Office Visit [facility] Internal Medicine [address] [place] [address] Steven Gonzalez MD [address] [place], [place] [phone] [email or web address] documented as of this encounter Visit Diagnoses Diagnosis No-show for appointment- Primary documented in this encounter Additional Health Concerns Assessment Noted Time PHQ-2 Depression Total Score: 1 12/28/19 24 8:38 AM EST documented as of this encounter Care Teams Direct Mail Manager Relationship Specialty Start Date End Date Steven Gonzalez MD [address] [place] [address] PCP - General Internal Medicine 08/17/17 Missael Chester MD [address] [facility], [address] [place] [address] [email or web address] Attributed Provider Urology 02/03/19 Steven Gonzalez MD [address] [place] [address] [email or web address] Insurance Assigned Provider 05/19/23 Jak Gasca MD [address] [place] [address] [email or web address] 12/16/19 Matthew Rashid MD [address] [facility] [address] [place] [id number] [email or web address] [email or web address] 12/16/19 Herminia Miller NP [address] [place] [address] Dr Mo[address] [place], [place] [phone] Nurse Practitioner Cardiology 02/27/23 documented as of this encounter Additional Source Comments The information contained in this document represents components of the legal health record. It is not the complete legal health record.[facility]
--- OUTSIDE RECORDS SUMMARY | 2024-12-31 08:00 | XMS_ITS | Encounter Summary ---
Author Organization [facility] Address [address] [facility] [address] [place] [address] Phone Care Team Providers Care Rocket Motor Mechanic Name Role Phone Steven Gonzalez MD Primary Care Provider [phone] Missael Chester MD Unavailable [phone] Steven Gonzalez MD Unavailable [phone] Jak Gasca MD Unavailable [phone] Matthew Rashid MD Unavailable [phone] Herminia Miller NP Unavailable Reason for Referral * MRI/CAT Scan - Authorized Specialty Diagnoses / Procedures Referred By Zan banda Referred To Contact Diagnoses Memory loss Procedures MRI Brain Steven Gonzalez MD [address] [place] [address] Phone: tel: fax: [email or web address] Referral ID Status Reason Start Date Expiration Date V isits Requested Visits Authorized [id number] Authorized 12/31/2024 12/31/2025 1 1 Reason for Visit * Reason Comments Chest Pain Mild chest pain abou t a month ago, pt took 2 nitroglycerin. Medicare Annual Wellness Visit Rolando banda Encounter Details Date Type Department Care Team (Latest Contact Info) Description 12/31/2024 8:00 AM EST Office Visit [facility] Internal Medicine [address] [place] [address] Steven Gonzalez MD [address] [place] [address] [email or web address] Atherosclerosis of sun'aq coronary artery of sun'aq heart without angina pectoris (Primary Dx); Routine general medical examination at a health care facility; Need for prophylactic vaccination and inoculation against influenza; Impaired fasting glucose; Nocturia; Weight loss; Congestive heart failure, unspecified HF chronicity, unspecified heart failure type; Chronic anticoagulation; Elevated TSH; Malaise and fatigue; Other depression; Longstanding persistent atrial fibrillation; Memory loss Social History Tobacco Use Types Packs/Day Years Used Date Smoking Tobacco: Former Cigarettes 1991 Smokeless Tobacco: Never Alcohol Use Standard Drinks/Week Comments No 0 (1 standard drink = 0.6 oz pur e alcohol) quit 1989 Education Answer Date Recorded Are you interested [...] on file documented as of this encounter Last Filed Vital Signs Vital Sign Reading Time Taken Comments Blood Pressure 110/65 12/31/2024 9:26 AM EST Pulse 73 12/31/2024 7:53 AM EST Temperature 36.7 C (98.1 F) 12/31/2024 7:53 AM EST Respiratory Rate - - Oxygen Saturation 98% 12/31/2024 7:53 AM EST Inhaled Oxygen Concentration - - Weight 89.7 kg (197 lb 12.8 oz) 12/31/2024 7:53 AM EST Height 185.7 cm (6' 1.11 ) 12/31/2024 7:53 AM ES T Body Mass Index 26.02 12/31/2024 7:53 AM EST documented in this encounter Progress Notes * Steven Gonzalez MD - 12/31/2024 8:00 AM EST Subjective Cristian Braxton is a 74 y.o. male. History of Present Illness Cristian Braxton is a 74 year old male with coronary artery disease and heart failure who presents for a Medicare physical. He has experienced a weight loss of 19 pounds over the past year and has a lack of appetite. He consumes three large cups of coffee daily with Splenda and half and half. No blood in stool, vomiting blood, or coughing up blood. No stomach pain, dizziness, or suicidal thoughts. He has a history of coronary artery disease and heart failure. He experiences vague chest pains that occur while sitting and not during physical activity. He has used nitroglycerin once or twice in the last two months but is unsure if it helped. A recent stress test was performed on September 08, but he cannot recall the details of the results. He reports having two hernias and questions whether he has one or two and if they are growing. He joked about having CT scans every six days. He has a history of a blood clot in his right leg, which is now permanently larger than the left. He experiences coldness in his feet, describing them as 'like ice,' and uses an electric throw heating blanket to manage this. No numbness in his feet, but he acknowledges a sensation of awareness whentouched. He wakes up at least three times a night to urinate despite not drinking fluids after 5 PM. He has a history of depression, particularly following the loss of his girlfriend and son. No suicidal thoughts. He is currently on Xarelto for blood thinning. He has a history of smoking for over 35 years but has since quit. He does not drive at night due to macular degeneration and vision issues. Current Outpatient Medications Ordered in [facility] Medication Sig aspirin 81 MG EC tablet Take 81 mg by mouth daily. atorvastatin (LIPITOR) 80 MG tablet TAKE 1 TABLET BY MOUTH EVERY DAY digoxin (LANOXIN) 250 mcg (0.25 mg) tablet Take 1 tablet (250 mcg total) by mouth 3 (three) times aweek on Sunday, Sunday, Sunday. metoprolol succinate (TOPROL-XL) 25 MG 24 hr tablet Take 25 mg by mouth daily. midodrine (PROAMATINE) 2.5 MG tablet Take 7.5 mg by mouth 2 (two) times a day. midodrine (PROAMATINE) 5 MG tablet Take 7.5 mg by mouth 2 (two) times a day. nitroglycerin (NITROSTAT) 0.[address] 1 TABLET UNDER THE TONGUE EVERY 5 MINUTES NEEDED FOR CHEST PAIN. polyethylene glycol (MIRALAX) 17 gram/dose powder Take 17 g by mouth. Every 3rd day (Patient takingdifferently: Take 17 g by mouth. Once every couple of weeks) rivaroxaban (XARELTO) 20 mg Tab Take 1 tablet (20 mg total) by mouth daily with dinner. Indications: treatment to prevent blood clots in chronic atrial fibrillation, treatment to prevent recurrence of a blood clot in the lungs traMADoL (ULTRAM) 50 mg tablet Take 1 tablet (50 mg total) by mouth every 6 (six) hours as needed for pain (specific location in comments) (low back). Uses sparingly, PRN (Patient taking differently:Take 50 mg by mouth as needed for pain (specific location in comments) (low back).) triamcinolone acetonide 0.1 % cream Apply 1 Application topically as needed. clindamycin (CLEOCIN T) 1 % lotion Apply topically 2 (two) times a day as needed (L98.9). docusate (COLACE) 100 mg tablet Take 1 tablets by mouth QAM and take 1 tablet every other evening. (Patient taking differently: Take 100 mg by mouth every other day. In the evening.) Review of Systems Objective Physical Exam BP 110/65 (BP Location: Right arm, Patient Position: Sitting) Pulse 73 Temp 36.7 ??C (98.1 ??F)(Oral) Ht 185.7 cm (6' 1.11 ) Wt 89.7 kg (197 lb 12.8 oz) SpO2 98% BMI 26.02 kg/m?? HEENT:PERRTL, EOM intact, fundi benign, TM's clear, throat clear. NECK: supple, no thyroid megaly, no adenopathy. LUNGS: clear to A&P,no wheezing/rhonichi/rales. HEART: irregular irregular, without murmurs, rubs or gallops. ABDOMEN: bowel sounds: normal, soft non tender without masses. EXTREMITIES: without edema, clubbing or cyanosis. NEUROLOGIC Sensation intact to vibration. Cranial nerves grossly intact. : Normal penis, testicles without masses. No hernias. RECTAL/PROSTATE: Deferred EKG: IA N/A, QRS 94 MS, QTC 413 MS, QRS axis 98 degrees, HR 61 bpm. Abnormal EKG due to atrial fibrillation with rare PVC, vertical axis no significant change from prior EKG. Assessment & Plan Adult Wellness Visit Routine Medicare physical examination conducted. Discussed general health maintenance and lifestylemodifications. - Administered flu shot. Atherosclerotic heart disease of sun'aq coronary artery and stable heart failure Coronary artery disease with vague chest pains at rest, not exertion-related. Heart failure well-managed. Nitroglycerin used once or twice in the last two months with uncertain efficacy. - Continue current management for heart failure and coronary artery disease. Abnormal weight loss and decreased appetite Significant weight loss of 19 pounds over the past year with decreased appetite. No gastrointestinal bleeding or vomiting. Discussed dietary modifications to increase protein intake. - Encouraged increased protein intake, such as eggs. Depression Suspected depression due to significant life losses and decreased appetite. Discussed potential benefits of antidepressant therapy. He expressed reluctance but acknowledged the need for intervention. - Will consider starting antidepressant therapy. Nocturia Experiences nocturia, waking up three times per night to urinate. Nocturia may be related to fluid intake habits. - Advised limiting fluid intake after 5 PM. Peripheral edema and chronic venous insufficiency, right leg Chronic venous insufficiency with peripheral edema in the right leg. Right leg is permanently larger due to previous clot and injury. - Continue use of compression stockings. Hernia Presence of a large hernia. Discussed potential for growth and the impact of weight loss on hernia size. - Continue to monitor hernia size and symptoms. Macular degeneration, unspecified Macular degeneration affecting vision. He reports not driving at night due to vision impairment. Immunization management Discussed immunization status. He has received the shingles vaccine in the past. - Administered flu shot. I obtained verbal consent from the patient or their proxy to record this visit for purposes of producing a draft of the encounter documentation. documented in this encounter Plan of Treatment Upcoming Encounters Date Type Department Care Team (Late st Contact Info) Description 02/20/2025 2:30 PM EST Office Visit [facility] Internal Medicine [address] [place] [address] Steven Gonzalez MD [address] [place] [address] [email or web address] Scheduled Orders Name Type Priority Associated Diagnoses Orde r Schedule CBC and Differential Lab Routine Weight loss Expected: 12/31/2024, Expires: 12/31/2025 Comprehensive Metabolic Panel (CMP) Lab Routine Weight loss Other depression Expected: 12/31/2024, Expires: 12/31/2025 Lipid Panel Lab Routine Atherosclerosis of sun'aq coronary artery of sun'aq heart without angina pectoris Expected: 12/31/2024, Expires: 12/31/2025 Thyroid Stimulating Hormone (TSH), with Reflex Lab Routine Weight loss Expected: 12/31/2024, Expires: 12/31/2025 Hemoglobin A1c Lab Routine Impaired fasting glucose Expected: 12/31/2024, Expires: 12/31/2025 Vitamin B12 Lab Routine Weight loss Other depression Expected: 12/31/2024, Expires: 12/31/2025 Urinalysis with Reflex to Urine Culture Lab Routine Nocturia Expected: 12/31/2024, Expires: 04/02/2025 ECG 12-LEAD ECG Routine Atherosclerosis of sun'aq coronary artery of sun'aq heart without angina pectoris Congestive heart failure, unspecified HF chronicity, unspecified heart failure type Expected: 12/31/2024, Expires: 04/02/2025 Digoxin Level Lab Routine Longstanding persistent atrial fibrillation Expected: 12/31/2024, Expires: 12/31/2025 C-Reactive Protein (CRP) Lab Routine Weight loss Expected: 12/31/2024, Expires: 12/31/2025 documented as of this encounter Procedures Procedure Name Priority Date/Time Associated Diagnosis Comments MRI BRAIN Routine 12/31/2024 9:36 AM EST Memory loss documented in this encounter Visit Diagnoses Diagnosis Atherosclerosis of sun'aq coronary artery of sun'aq heart without angina pectoris- Primary Routine general medical examination at a health care facility Need for prophylactic vaccination and inoculation against influenza Impaired fasting glucose Nocturia Weight loss Loss of weight Congestive heart failure, unspecified HF chronicity, unspecified heart failure type Chronic anticoagulation Encounter for long-term (current) use of anticoagulants Elevated TSH Other abnormal blood chemistry Malaise and fatigue Other depression Longstanding persistent atrial fibrillation Memory loss documented in this encounter Additional Health Concerns Assessment Noted Time PHQ-9 Depression Total Score: 13 025 9:17 AM EST PHQ-2 Depression Total Score: 4 01/01/20 25 9:17 AM EST documented as of this encounter Care Teams Rocket Motor Mechanic Relationship Specialty Start Date End Date Steven Gonzalez MD [address] [place] [address] PCP - General Internal Medicine 08/17/17 Missael Chester MD [address] [place] [address], [address] [place], [place] [phone] [email or web address] Attributed Provider Urology 02/03/19 Steven Gonzalez MD [address] [place] [address] [email or web address] Insurance Assigned Provider 05/19/23 Jak aGsca MD [address] [place] [address] [email or web address] 12/16/19 Matthew Rashid MD [address] [facility] [address] [place] [address] [email or web address] Urology 12/16/19 Herminia Miller NP [address] [place] [address] [place] [address] Nurse Practitioner Cardiology 02/27/23 documented as of this encounter Additional Source Comments The information contained in this document represents components of the legal health record. It is not the complete legal health record.[facility]
[2024-12-31 16:03] LABS: MANUAL DIFF FLAG NO
[2024-12-31 16:14] LABS: Hematocrit 42.8 % (42.0-52.0); Hemoglobin 13.8 g/dl (14.0-18.0); Imm Gran Abs Auto 0.02 X10*3/uL (0.00-0.03); Imm Gran Pct Auto 0.3 % (0.0-0.4); Lymphocytes Absolute Auto 1.5 X10*3/uL (1.2-4.9); Mean Corpuscular HGB Conc 32.2 g/dl (31.0-36.0); Mean Corpuscular Hemoglobin 28.8 pg (27.0-33.0); Mean Corpuscular Volume 89.4 fL (80.0-98.0); NRBC Abs Auto 0.000 X10*3/uL (0.0-0.012); NRBC Pct Auto 0.0 /100WBC (0.0-0.2); Platelet Count 167 X10*3/uL (160-400); Red Blood Count 4.79 X10*6/uL (4.60-5.80); White Blood Count 6.9 X10*3/uL (4.8-10.8)
[2024-12-31 16:39] LABS: Alanine Aminotransferase 10 U/L (0-40); Albumin Level 3.8 g/dL (3.5-5.0); Alkaline Phosphatase 70 U/L (39-117); Anion Gap 10 (12-20); Aspartate Amino Transferase 32 U/L (5-37); Blood Urea Nitrogen 16 mg/dL (9-16); Calcium 8.9 mg/dL (8.4-10.2); Carbon Dioxide 29 mmol/L (22-29); Chloride 106 mmol/L (96-108); Cholesterol 111 mg/dL (<200); Estimated Glomerular Filt Rate > 60; HDL Cholesterol 43 mg/dL (>40); Potassium 4.2 mmol/L (3.3-5.1); Sodium 141 mmol/L (135-145); Total Protein 6.3 g/dL (6.5-8.0); Triglycerides 87 mg/dL (<150)
[2024-12-31 16:46] LABS: Appearance Urine Turbid; Glucose Urine UA Negative (Negative); PH 5.0 (5.0-9.0); Specific Gravity - Urine >= 1.030 (1.005-1.025); UMIC TRIGGER UACC YES
[2024-12-31 17:11] LABS: Digoxin 0.4 ng/mL (0.8-2.0)
[2024-12-31 17:43] LABS: Vitamin B12 909 pg/mL (200-900)
[2024-12-31 17:49] LABS: Free T4 (Free Thyroxine) 0.83 ng/dL (0.71-1.85)
--- OUTSIDE RECORDS SUMMARY | 2025-01-01 01:01 | XMS_ITS | Encounter Summary ---
Author Organization [facility] Address [address] [facility] [address] [place] [address] Phone Care Team Providers Care Analysis Lead Name Role Phone Steven Gonzalez MD Primary Care Provider [phone] Missael Chester MD Unavailable [phone] Steven Gonzalez MD Unavailable Jak Gasca MD Unavailable Matthew Rashid MD Unavailable Herminia Miller NP Unavailable [phone] Encounter Details Date Type Department Care Team (Late st Contact Info) Description 12/30/2024 Documentation [facility] [place] [facility] [address] [place], [place] [phone] Steven Gonzalez MD [address] [place], [place] [phone] [email or web address] Social History Tobacco Use Types Packs/Day Years [...] as of this encounter Progress Notes * Rick Hurt MA - 12/30/2024 2:12 PM EST Updated documented in this encounter Plan of Treatment Upcoming Encounters Date Type Department Care Team (Late st Contact Info) Description 02/20/2025 2:30 PM EST Office Visit [facility] [address] [place] [address] Steven Gonzalez MD [address] [place] [address] [email or web address] documented as of this encounter Procedures Procedure Name Priority Date/Time Associated Diagnosis Comments DIABETES EYE EXAM FOR RESULT ENTRY ONLY Routine 09/24/2024 OUTSIDE ALT LEVEL Routine 09/12/2024 OUTSIDE ALKALINE PHSOPHATASE LEVEL Routine 09/12/2024 documented in this encounter Results * DIABETES EYE EXAM FOR RESULT ENTRY ONLY (09/24/2024) EYE EXAM in media EXTERNAL NON-INTERFACED REF LAB us Historical Provider HEALTH MAINTENANCE Final Result Performing Organization Address City/[facility]/ZIP Co de Phone Number EXTERNAL NON-INTERFACED REF LAB * Outside ALT Level (09/12/2024) ALT - External 15 5 - 30 U/L EXTE RNAL NON-INTERFACED REF LAB us Historical Provider MD LAB BLOOD ORDERABLES Elva l Result Performing Organization Address City/[facility]/ZIP Co de Phone Number EXTERNAL NON-INTERFACED REF LAB * Outside Alkaline Phosphatase Level (09/12/2024) ALKALINE PHOSPHATE LEVEL - EXTERNAL 87 50 - 100 U/L EXTERNAL NON-INTERFACED REF LAB Historical Provider LAB BLOOD ORDERABLES Elva l Result Performing Organization Address City/[facility] Co de Phone Number EXTERNAL NON-INTERFACED REF LAB documented in this encounter Visit Diagnoses Not on filedocumented in this encounter Additional Health Concerns Assessment Noted Time PHQ-2 Depression Total Score: 1 12/28/19 24 8:38 AM EST documented as of this encounter Care Teams Analysis Lead Relationship Specialty Start Date End Date Steven Gonzalez MD [address] [place] [address] PCP - General Internal Medicine 08/17/17 Missael Chester MD [address] [place] [address], [address] [address] Partners Attributed Provider Urology 02/03/19 Steven Gonzalez MD [address] [place] [address] Insurance Assigned Provider 05/19/23 Jak Gasca MD [address] [place] [address] [email or web address] 12/16/19 Matthew Rashid MD [address] [place] [address] [email or web address] 12/16/19 Herminia Miller NP [address] [place] [address] [address] Mo[address] [place] [address] Nurse Practitioner Cardiology 02/27/23 documented as of this encounter Additional Source Comments The information contained in this document represents components of the legal health record. It is not the complete legal health record.[facility]
--- OUTSIDE RECORDS SUMMARY | 2025-01-01 01:01 | XMS_ITS | Clinical Summary ---
Author Organization [facility] Address [address] [address] Phone Care Team Providers Care Whizzer Operator Name Role Phone Steven Gonzalez MD Primary Care Provider [phone] Missael Chester MD Unavailable [phone] Steven Gonzalez MD Unavailable [phone] Jak Gasca MD Unavailable [phone] Matthew Rashid MD Unavailable Herminia Miller NP Unavailable Allergies No known active allergies Medications docusate (COLACE) 100 mg tablet Take 1 tablets by mouth QAM and take 1 tablet every other evening. Active aspirin 81 MG EC tablet Take 81 mg by mouth daily. Active polyethylene glycol (MIRALAX) 17 gram/dose powder Take 17 g by mouth. Every 3rd day Active traMADoL (ULTRAM) 50 mg tabletIndications:R ight hip pain Take 1 tablet (50 mg total) by mouth every 6 (six) hours as needed for pain (specific location in comments) (low back). Uses sparingly, PRN 30 tablet 1 07/12/19 23 Active Additional Information Patient taking differently:50 mg OralAs needed, pain (specific location in comments), low back,(No instructions reported), Reported on 12/31/2024 midodrine (PROAMATINE) 2.5 MG tablet Take 7.5 mg by mouth 2 (two) times a day. Active atorvastatin (LIPITOR) 80 MG tabletIndications:C oronary artery disease TAKE 1 TABLET BY MOUTH EVERY DAY 90 tablet 3 02/13/19 25 Active rivaroxaban (XARELTO) 20 mg TabIndications:prev ent thromboembolism in chronic atrial fibrillation,preven tion of pulmonary thromboembolism recurrence Take 1 tablet (20 mg total) by mouth daily with dinner. Indications: treatment to prevent blood clots in chronic atrial fibrillation, treatment to prevent recurrence of a blood clot in the lungs 90 tablet 3 02/26/19 25 Active digoxin (LANOXIN) 250 mcg (0.25 mg) tabletIndications:L ongstanding persistent atrial fibrillation Take 1 tablet (250 mcg total) by mouth 3 (three) times a week on Sunday, Sunday, Sunday. 40 tablet 2 02/26/19 25 Active clindamycin (CLEOCIN T) 1 % lotionIndications:S ore on scalp Apply topically 2 (two) times a day as needed (L98.9). 180 mL 3 06/11/19 25 Active nitroglycerin (NITROSTAT) 0.4 MG SL tabletIndications:A therosclerosis of stebbins coronary artery of stebbins heart without angina pectoris PLACE 1 TABLET UNDER THE TONGUE EVERY 5 MINUTES NEEDED FOR CHEST PAIN. 25 tablet 5 08/02/19 25 Active midodrine (PROAMATINE) 5 MG tablet Take 7.5 mg by mouth 2 (two) times a day. 08/22/19 25 Active metoprolol succinate (TOPROL-XL) 25 MG 24 hr tablet Take 25 mg by mouth daily. 08/22/19 25 Active triamcinolone acetonide 0.1 % cream Apply 1 Application topically as needed. 07/18/19 25 Active Active Problems Problem Noted Date Diagnosed Date Elevated TSH 08/28/2024 Assessment & Plan (08/28/2024 2:47 PM EDT): Recheck TSH. Check T3, free T4. Consider beginning low dose levothyroxine thereafter. Malaise and fatigue 08/28/2024 Assessment & Plan (08/28/2024 3:08 PM EDT): Await labs, cardiology workup. Dizziness 08/28/2024 Assessment & Plan (08/28/2024 3:09 PM EDT): Suspect due to orthostatic changes. Discussed appropriate hydration. EKG without significant changes since recent 08/21/24 study. Will also check head CT given sudden onset new symptoms. If any worsening symptoms he will follow up emergently. Weight loss 08/28/2024 Assessment & Plan (08/28/2024 2:58 PM EDT): Await labs. Cristian has not been consuming calories regularly, will try to add an easy, salty snack midmorning and midafternoon. Consider additional workup including CXR, stool occult blood testing. Longstanding persistent atrial fibrillation 06/14 Syncope and collapse 07/21/2021 Assessment & Plan (07/21/2021 12:26 PM EDT): Suspect this was due to Orthostatic Hypotension due to Metoprolol vs. Other Hold metoprolol Monitor closely Call immediately if any issues EKG reviewed during visit today: Afib, PVC, no ishemia Orthostatic hypotension 07/21/2021 Assessment & Plan (07/21/2021 12:21 PM EDT): I think this may be the cause of his collapse earlier this week SBPs extremely low Long discussion, patient feels that he is unable to cut metorprolol dose in 1/2 Will hold dose currently Patient to check Bps and Heart Rate Call immediately if symptomatic with CP, palp, etc. To ER for severe symptoms Recheck 4 weeks Chronic anticoagulation 07/21/2021 Assessment & Plan (07/21/2021 12:17 PM EDT): Currently stable No further episodes of hemoptysis Edema 07/21/2021 Assessment & Plan (07/21/2021 12:23 PM EDT): See above re u/s LE Immunization due 07/21/2021 Assessment & Plan (07/21/2021 12:24 PM EDT): Tetanus today Protein C deficiency 07/21/2021 Assessment & Plan (07/21/2021 12:18 PM EDT): Stable on Zarelto Right calf pain 07/21/2021 Assessment & Plan (07/21/2021 12:24 PM EDT): R/o new DVT Check u/s Hemoptysis 07/21/2021 Assessment & Plan (07/21/2021 12:22 PM EDT): Patient reports 2-3 episodes of coughing up small amount of dark blood Reportedly eval in [facility] ER and dx'd with PNA Recheck Chest xray He has f/u with Dr. Payne, Pulm at [facility] Other pneumonia, unspecified organism 07/21/2021 Assessment & Plan (07/21/2021 12:22 PM EDT): Check f/u CXR Currently asymptomatic Deep vein thrombosis (DVT) 04/29/2021 Assessment & Plan (07/21/2021 12:19 PM EDT): R/o recurrent DVT due to RLE pain and swelling Despite being on Xarelto Pulmonary embolism 04/29/2021 Assessment & Plan (07/21/2021 12:19 PM EDT): Currently breathing is okay See Dr. Payne at [facility] Benign prostatic hyperplasia 04/29/2021 Hypertension 01/21/2018 Assessment & Plan (07/21/2021 12:18 PM EDT): Controlled on meds but symptomatic on meds Coronary artery disease 01/08/2018 Overview (01/08/2018): PCI bare metal stent in LAD 08/19 and PCI wiht bare metal stent in mid RCA 09/21 Assessment & Plan (07/21/2021 12:18 PM EDT): Stable per patient Visit for suture removal 09/07/2017 Incisional hernia 02/18/2014 Overview (04/03/2014): Incisional hernia Resolved Problems Problem Noted Date Diagnosed Date Resolved Date Pulmonary embolism and infarction [I26.99] 01/02/2018 04/18/2018 Encounters Date Type Department Care Team Description 12/31/2024 8:00 AM EST Office Visit [facility] Internal Medicine [address] [place] [address] Steven Gonzalez MD Atherosclerosis of stebbins coronary artery of stebbins heart without angina pectoris (Primary Dx); Routine general medical examination at a health care facility; Need for prophylactic vaccination and inoculation against influenza; Impaired fasting glucose; Nocturia; Weight loss; Congestive heart failure, unspecified HF chronicity, unspecified heart failure type; Chronic anticoagulation; Elevated TSH; Malaise and fatigue; Other depression; Longstanding persistent atrial fibrillation; Memory loss 12/31/2024 Telephone [facility] Internal Medicine [address] [place] [address] Steven Gonzalez MD MRI brain 12/30/2024 Documentation [facility] Internal [facility] [address] [place] [address] Steven Gonzalez MD 12/29/2024 9:00 AM EST Office Visit [facility] [address] [place] [address] Steven Gonzalez MD No-show for appointment (Primary Dx) 12/17/2024 Episode Documentation Update [address] [address] 12/17/2024 Patient Outreach [address] [address] Nicole Mansfield, RN Program Discharge ([facility]) 11/10/[address] [address] 10/28/2024 Patient Outreach [facility] [address] [place] [address] Nicole Mansfield, RN Care Coordination (iCMP) from Last 3 Months Immunizations Immunization Administration Dates Next Due COVID-19 (Pre-12/04) Pfizer Vaccine, mRNA, PF 11/29/2020,05/15/2020,04/24/2020 INFLUENZA, SPLIT VIRUS, TRIV ALENT W/ PRESERVATIVE IM 11/13/2018 Influenza High-Dose Quadriva lent Preservative Free IM 02/06/2023,10/31/2021,11/11/2020,11/04 Influenza High-Dose Trivalen t Preservative Free IM 12/31/2024,10/27/2023,01/31/2019,01/08 Influenza Quadrivalent Prese rvative Free IM 11/05/2019 Pneumococcal conjugate PCV13 12/01/2019,11/14/19 Pneumococcal polysaccharide PPSV23 11/11/2020 RSV Vaccine (monovalent, adjuvanted) 12/29/2023 Td (adult) 5 Lf Tetanus Toxo id, PF, Adsorbed 07/21/2021 Family History Medical History Relation Comments Deep vein thrombosis Father Alcohol abuse Son Deep vein thrombosis Son Lupus Son Relation Status Comments Brother age 3 months Daughter Alive Father (Age 56) pulmonary embo li Mother (Age 92) Sister 1 Alive Sister 2 Alive Son (Age 53) lupusheavy smo ker and heavy drinker Social History Tobacco Use Types Packs/Day Years Used Date Smoking Tobacco: Former Cigarettes 2 30 1 962 - 1991 Smokeless Tobacco: Never Tobacco Cessation:Counseling Given: Not Answered Alcohol Use Standard Drinks/Week Comments No 0 [...] on file Sexual Orientation Not on file Last Filed Vital Signs Vital Sign Reading Time Taken Comments Blood Pressure 110/65 12/31/2024 9:26 AM EST Pulse 73 12/31/2024 7:53 AM EST Temperature 36.7 C (98.1 F) 12/31/2024 7:53 AM EST Respiratory Rate 16 09/12/2024 8:19 AM EDT Oxygen Saturation 98% 12/31/2024 7:53 AM EST Inhaled Oxygen Concentration - - Weight 89.7 kg (197 lb 12.8 oz) 12/31/2024 7:53 AM EST Height 185.7 cm (6' 1.11 ) 12/31/2024 7:53 AM ES T Body Mass Index 26.02 12/31/2024 7:53 AM EST Plan of Treatment Upcoming Encounters Date Type Department Care Team (Late st Contact Info) Description 02/20/2025 2:30 PM EST Office Visit [facility] Internal Medicine [address] [place] [address] Steven Gonzalez MD [address] [place] [address] [email or web address] Health Maintenance Due Date Last Done Comments ZOSTER VACCINES (1 of 2) 1998 COVID-19 VACCINE ( season) 2024 10/28/2024, 10/27/2023, 02/07/2023, Additional history exists REPEAT PHQ 01/30/2025 12/31/2024, 12/31/2024 BLOOD PRESSURE 06/30/2025 12/31/2024 CREATININE LEVEL 08/28/2025 08/28/2024, 11/2024, 12/28/2023, Additional history exists POTASSIUM LEVEL 08/28/2025 08/28/2024, 08/12, 12/28/2023, Additional history exists DEPRESSION SCREENING 12/31/2025 12/31/2024, 01/01/20 25 Adult Td,Tdap Booster 07/22/2031 07/21/2021 HEPATITIS C SCREENING Completed 12/09/2018 , 12/09/2018, 11/04/2018 PNEUMOCOCCAL VACCINES (50+ years) Completed 11/11/2020, 12/01/2019, 11/13/2018 RSV VACCINE Completed 12/29/2023 INFLUENZA VACCINE Completed 12/31/2024, , 02/06/2023, Additional history exists SMOKING STATUS SCREENING (Once After 26 Yrs) Completed 12/31/2024 HEPATITIS A VACCINES Aged Out No long er eligible based on patient's age to complete this topic HIB VACCINES Aged Out No longer eligi ble based on patient's age to complete this topic MENINGOCOCCAL VACCINES (ACWY) Aged Out No longer eligible based on patient's age to complete this topic MENINGOCOCCAL VACCINES (B) Aged Out N o longer eligible based on patient's age to complete this topic Medical Devices Not on file Procedures Procedure Name Priority Date/Time Associated Diagnosis Comments MRI BRAIN Routine 12/31/2024 9:36 AM EST Memory loss BASIC METABOLIC PANEL (BMP) Routine 08/28/2024 2:34 PM EDT Malaise and fatigue Dizziness Weight loss HEPATITIS C ANTIBODY, QUALITATIVE Routine 12/09/2018 3:29 PM EDT Need for hepatitis C screening test from Last 3 Months or Most Recently Relevant to Health Maintenance Results * Basic metabolic panel (08/28/2024 2:34 PM EDT) SODIUM 138 133 - 146 mmol/L [facility] CHLORIDE 101 96 - 108 mmol/L [facility] POTASSIUM 4.2 3.3 - 5.1 mmol/L [facility] CO2 25 21 - 35 mmol/L [facility] BUN 10 6 - 19 mg/dL [facility] CREATININE 0.80 0.5 - 1.5 mg/dL [facility] GLUCOSE 96 70 - 99 mg/dL [facility] CALCIUM 9.5 8.4 - 10.3 mg/dL [facility] EGFR 92 >59 mL/min/1.7 3m2 [facility] Comment:Estimated glomerular filtration rate calculated using the CKD-EPI refit equation. ANION GAP 16 10 - 20 mmol/L [facility] Blood 08/28/2024 2:34 PM EDT 08/28/2024 2:41 PM EDT us Mary Albrecht Aaron PASCUAL LAB BLOOD BKR ORDERABL ES Final Result Performing Organization Address City/[facility]/ZIP Co de Phone Number [address] [address] * Hepatitis C antibody, qualitative (12/09/2018 3:29 PM EDT) HCV NON-REACTIV E NON-REACTI VE [facility] Blood 12/09/2018 3:29 PM EDT 12/09/2018 3:33 PM EDT us Steven Gonzalez MD LAB BLOOD BKR ORDERABLES Elva l Result Performing Organization Address [facility] Co de Phone Number [address] [address] from Last 3 Months or Most Recently Relevant to Health Maintenance Insurance MEDICARE PART A & B [employer] CROSS MEDEX SUPPLEMENT MEDICARE PART A & B [employer] [place] MEDEX SUPPLEMENT MEDICARE PART A & B Member Subscriber Plan / Payer ( fective 2002-Present) Name:rIais Cristian Saundra Member ID:[id number] Relation to Subscriber:Self Name:Irais Cristian Saundra Subscriber ID:[id number] Payer ID:[id number] Group ID:Not on file Type:Medicare Address: [employer] [address] [place] [phone] [employer] [place] MEDEX SUPPLEMENT MEDICARE PART A & B [employer] [place] MEDEX SUPPLEMENT MEDICARE PART A & B Member Subscriber Plan / Payer ( fective 2002-Present) Name:Cristian Braxton Member ID:[id number] Relation to Subscriber:Self Name:Cristian Braxton Subscriber ID:[id number] Payer ID:[id number] Group ID:Not on file Type:Medicare Address: [employer] [address] [place] [phone] [employer] CROSS MEDEX SUPPLEMENT MEDICARE PART A & B Member Subscriber Plan / Payer (Formerly [facility], 1928–1983tive 01/12/2002-Present) Name:Cristian Braxton Member ID:[id number] Relation to Subscriber:Self Name:Cristian Braxton Subscriber ID:[id number] Payer ID:[id number] Group ID:Not on file Type:Medicare Address: [employer] [address] [place], [place] [phone] [employer] [place] MEDEX SUPPLEMENT Member Subscriber Plan / Payer (Formerly [facility], 1928–1983tive 01/12/2002-Present) Name:Cristian Braxton Relation to Subscriber:Self Name:Cristian Braxton Payer ID:[id number] (NAIC) Type:Indemnity Address: [place] [address] MEDICARE PART A & B Member Subscriber Plan / Payer ( fective 2002-Present) Name:Cristian Braxton Saundra Member ID:[id number] Relation to Subscriber:Self Name:Cristian Braxton Subscriber ID:[id number] Payer ID:[id number] Group ID:Not on file Type:Medicare Address: [employer] [address] [place] [phone] [employer] CROSS MEDEX SUPPLEMENT MEDICARE PART A & B [employer] [place] MEDEX SUPPLEMENT MEDICARE PART A & B [employer] CROSS MEDEX SUPPLEMENT Care Teams Whizzer Operator Relationship Specialty Start Date End Date Steven Gonzalez MD [address] [place] [address] [email or web address] PCP - General Internal Medicine 08/17/17 Missael Chester MD [address] [place] [address], [address] [address] [email or web address] Attributed Provider Urology 02/03/19 Steven Gonzalez MD [address] [place] [address] [email or web address] Insurance Assigned Provider 05/19/23 Jak Gasca MD [address] [place] [address] [email or web address] 12/16/19 Matthew Rashid MD [address] [facility] [address] [place] [address] [email or web address] 12/16/19 Herminia Miller NP [address] [place] [address] Dr Moeller [address] [place] [address] Nurse Practitioner Cardiology 02/27/23 Additional Source Comments The information contained in this document represents components of the legal health record. It is not the complete legal health record.[facility]
--- OUTSIDE RECORDS SUMMARY | 2025-01-01 01:01 | XMS_ITS | Encounter Summary ---
Author Organization [facility] Address [address] [facility] [address] [place] [address] Phone Care Team Providers Care Special Police Officer Name Role Phone Steven Gonzalez MD Primary Care Provider Missael Chester MD Unavailable [phone] Steven Gonzalez MD Unavailable [phone] Jak Gasca MD Unavailable Matthew Rashid MD Unavailable Herminia Miller NP Unavailable [phone] Reason for Visit * Reason Onset Date Comments MRI brain 12/31/2024 Encounter Details Date Type Department Care Team (Late st Contact Info) Description 12/31/[address] [facility] Internal Medicine [address] [place], [place] [address] Steven Gonzalez MD [address] [place], [place] [phone] MRI brain Social History Tobacco Use Types Packs/Day Years [...] as of this encounter Progress Notes * Kristofer Vides - 12/31/2024 11:01 AM EST MRI brain order faxed to [facility] scheduling with confirmation receipt received. No PA needed as he has Medicare and BC/BS Med[employer]. Scheduled at [address] [place] [address] in [place] for SundayFebruary 08 at 12:00. Spoke to patient and he wrote down the date/time/location of appt documented in this encounter Plan of Treatment Upcoming Encounters Date Type Department Care Team ([facility] st Contact Info) Description 02/20/2025 2:30 PM EST Office Visit [facility] Internal Medicine [address] [place] [address] Steven Gonzalez MD [address] [place] [address] documented as of this encounter Visit Diagnoses Not on filedocumented in this encounter Additional Health Concerns Assessment Noted Time PHQ-9 Depression Total Score: 13 025 9:17 AM EST PHQ-2 Depression Total Score: 4 01/01/20 25 9:17 AM EST documented as of this encounter Care Teams Special Police Officer Relationship Specialty Start Date End Date Steven Gonzalez MD [address] [place] [address] PCP - General Internal Medicine 08/17/17 Missael Chester MD [facility] [place] [address] Partners Attributed Provider Urology 02/03/19 Steven Gonzalez MD [address] [place] [address] Insurance Assigned Provider 05/19/23 Jak Gasca MD [address] [place] [address] [email or web address] 12/16/19 Matthew Rashid MD 100 [facility] [address] [place] [address] [email or web address] 12/16/19 Herminia Miller NP [address] [place] [address] Dr Moeller [address] [place] [address] Nurse Practitioner Cardiology 02/27/23 documented as of this encounter Additional Source Comments The information contained in this document represents components of the legal health record. It is not the complete legal health record.[facility]
== END 2024-12-31 13:05 | disposition home or self-care (01) ==
LOC: HO.HMGCLDS 13:04
PROVIDERS: PCP Internal Medicine; Visit Provider Internal Medicine
DX: I48.11 Longstanding persistent atrial fibrillation (principal); I25.10 Atherosclerotic heart disease of native coronary artery without angina pectoris; F32.89 Other specified depressive episodes; R63.4 Abnormal weight loss; R73.01 Impaired fasting glucose; R35.1 Nocturia
CPT/HCPCS: 36415; 80053; 80061; 80162; 81001; 82607; 83036; 84439; 84443; 85025; 86140